=== PATIENT | male | born 1940 | race Caucasian/White ===

== ENCOUNTER 2024-04-19 18:39 | Emergency (ER) | payer MEDICARE, OTHER, SELFPAY ==
[2024-04-19] VITALS (12 sets, daily range): BP systolic 80–155; BP diastolic 47–84; PULSE 70–75; BMI 25.6
--- NOTE | 2024-04-19 18:44 | ED.GENMED ---
History of Present Illness
General
Chief Complaint: Change in Mental Status
Source: patient and family
Exam Limitations: none
Time Seen by Provider: 04/19/24 18:43
Nursing documentation reviewed up to this point in time: agreed with
History of Present Illness
History of Present Illness:
84-year-old male w h/o afib, pacemaker, stent 'all years ago,' at [place], D, hypotension on Midodrine he takes prn, presents via EMS who report pt was working around his pool, fell, couldn't get up and was calling out to neighbors who came and
called EMS. Pt is not anticoagulated, denies hitting his head.
Pt states he had just finished fixing something by his pool, got up to walk to the shed, stepped forward and 'my legs kept stepping and I couldn't stop myself, it was like I was going downhill and my legs wouldn't stop' and he fell forward. He felt
weak and couldn't get up so called out to his neighbor. States he was able to stand and walk when EMS came. He denies neck pain, denies back or chest pain, denies pain in extremities from the fall. Denies chest pain, headache, feeling dizzy or
lightheaded prior to fall.
Received 1 L NSS IV en route. Arrives alert, oriented.
His Pomeranian dog bit him yesterday and he presents with pain, swelling, puncture wounds to right hand
He injured his left lower ribs the other day when he fell, there is a mild linear abrasion at the lower rib area
Past History
Past History
ED Past Medical History: Arrthythmia (afib), Hypercholesterolemia and Other (hypotension on Midodrine)
ED Past Surgical History: Cardiac (stent, pacemaker)
Social History
Tobacco: Former smoker
Alcohol: Occasional
Personal:
Living: with family
Employment: Retired
Review of Systems
Review of Systems
Allergies reviewed?: Yes
All Other Systems: ROS reviewed and negative except as documented in HPI and ROS
Constitutional: Denies fever or fatigue
Respiratory: Denies trouble breathing
Cardiac: Denies chest pain, diaphoresis, palpitations or syncope
ABD/GI: Denies abdominal pain, nausea, vomiting or diarrhea
: Reports incontinence (sometimes incontinent, wears depends); Denies dysuria, frequency, difficulty voiding or urgency
Musculoskeletal: Reports other (denies pain in extremities); Denies edema, neck pain or back pain
Skin: Reports other (scraped left elbow , outer left knee from trying to get up on pavement)
Neurological: Denies dizzy, headache, weakness or numbness
Phy Exam
Physical Exam
Physical Exam:
GENERAL: No acute distress. A&Ox3.
CONSTITUTIONAL: Afebrile.
EYES: PERRL, conjunctivae normal
Neck: Supple
ENMT: moist mucus membranes, Pharynx nl
RESPIRATORY: Regular respirations, nonlabored, lungs clear.
CARDIOVASCULAR: Regular rate and rhythm, no murmurs, no rubs.
GI: Soft, nontender, normal BS
MUSCULOSKELETAL: No spinal bony tenderness. No bony tenderness, adequate ROM of all extremities. Moves with ease. Well perfused. No edema
SKIN: Warm, dry, pink, deep clean abrasion left elbow and left outer knee.
PSYCH: Normal mood and affect. Well kept, interactive and appropriate
NEUROLOGIC: Awake, alert and oriented. Speech clear. Strength equal throughout. CN 2-12 intact. Finger to nose intace. No focal neurological deficits
Course
Orders/Labs/Results
Orders:
Orders
04/19/24 19:03
Electrocardiogram (*1) Urgent
Reason for Study: Other
Other Reason for Exam: fall, lost balance
EKG- Treatment ONCE
04/19/24 19:08
Complete Blood Count/With Diff Urgent
Comprehensive Metabolic Panel Urgent
Troponin I Urgent
04/19/24 19:09
Hand, Right 3 View [CR Hand - Right Min 3 Views] Urgent
Comment:
Reason For Exam: dog bite, redness, swelling index finger/dorsum
04/19/24 19:10
Amoxicillin 875 mg/Clav 125 mg [Augmentin 875 mg/125 mg] 1 tablet PO NOW STA
04/19/24 20:14
Ribs, Left 3 View W/PA Chest CR [CR Ribs-left 3 Vw W/pa Chest] Urgent
Comment:
Reason For Exam: abrasion left later lower ribs after fall
04/19/24 20:45
Orthostatic VS- Treatment ONCE
04/19/24 21:44
0.9% Sodium Chloride 500 ml [Nss] 500 ml IV BOLUS
Abnormal Lab Results
04/19/24
19:08
RBC 4.12 L 10^6/uL
(4.70-6.10)
Hct 36.3 L %
(39.0-52.0)
MCH 31.6 H pg
(27.0-31.0)
MPV 10.7 H fL
(7.4-10.4)
Absolute Neuts (auto) 9.1 H 10^3/uL
(1.4-6.5)
Absolute Lymphs (auto) 0.8 L 10^3/uL
(1.2-3.4)
Absolute Monos (auto) 0.9 H 10^3/uL
(0.1-0.6)
Neutrophils % 84.1 H %
(42.2-75.2)
Lymphocytes % 7.0 L %
(20.5-51.1)
Chloride 109 H mmol/L
(98-107)
BUN 31 H mg/dl
(9-20)
Glucose 120 H mg/dl
(70-99)
Total Bilirubin 1.5 H mg/dl
(0.2-1.3)
04/19/24 19:08
04/19/24 19:08
Vital Signs
Initial and Last Documented VS:
Initial Vital Signs
Temp Pulse BP Pulse Ox
98.4 F 70 129/53 96
04/19/24 18:42 04/19/24 18:42 04/19/24 18:42 04/19/24 18:42
Last Documented Vital Signs
Temp Pulse Resp BP Pulse Ox
98.4 F 70 20 127/83 96
04/19/24 18:42 04/19/24 22:21 04/19/24 22:21 04/19/24 22:51 04/19/24 19:14
Machine Washer consulted with Physician
Machine Washer consulted with physician?: Yes
Name of Physician Consulted: Michel
MDM/Problems Addressed
Differential Diagnosis Includes:
mechanical fall, dehydration, heat exhaustion, orthostatic hypotension
MDM/Problems Addressed:
84-year-old male w h/o afib, pacemaker, stent 'all years ago,' at [place], D, hypotension on Midodrine he takes prn, presents via EMS who report pt was working around his pool, fell, couldn't get up and was calling out to neighbors who came and
called EMS. Pt is not anticoagulated, denies hitting his head.
Pt states he had just finished fixing something by his pool, got up to walk to the shed, stepped forward and 'my legs kept stepping and I couldn't stop myself, it was like I was going downhill and my legs wouldn't stop' and he fell forward. He felt
weak and couldn't get up so called out to his neighbor. States he was able to stand and walk when EMS came. He denies neck pain, denies back or chest pain, denies pain in extremities from the fall. Denies chest pain, headache, feeling dizzy or
lightheaded prior to fall.
Received 1 L NSS IV en route. Arrives alert, oriented.
His Pomeranian dog bit him yesterday and he presents with pain, swelling, puncture wounds to right hand
He injured his left lower ribs the other day when he fell, there is a mild linear abrasion at the lower rib area
8:00 p.m.
CBC: no clinically significant abnormality
CMP: No clinically significant abnormality
Troponin WNL
EKG: Atrial paced rhythm with prolonged AV conduction, no comparison EKG
Right hand x-ray: No acute bony abnormality or foreign body noted.
Left ribs: Neg fracture or other acute abnormality
9:30 p.m.
Orthostatics by this examiner
Laying supine BP 155/81 HR 76
Sitting BP 126/70 HR 76
Standing BP 98/57 HR 78
Pt had no lightheadedness/dizziness.
states 'we go through this every day' states BP fluctuates from very low to normal and sometimes high
This is nothing new
Will give another bolus of NSS 500 IV and discharg
Instructed to take Midodrine at least daily (he did take 2.5 mg TID at one time, then weaned himself to daily and now prn. He takes his blood pressure frequently during the day).
*EKG
EKG Intrepretation Date: 04/19/24
Interpretation: abnormal
Comparison EKG: no comparison EKG present
Heart Rate: 70
Rate: normal
Rhythm: other (Atrial paced rhythm)
[place]: normal axis
QRS Pattern: normal QRS
Ischemia: no ischemia
*Critical Care Note
Total Time (30-74mins, 75-104mins- exclusive of procedures): Not Applicable
ED Attending Note
-
Portions of this chart may have been created with voice recognition software.� Occasional wrong word or��sound alike� substitutions may have occurred due to the inherent limitations of voice recognition software.
Discharge Plan
Departure
Patient Disposition: Home (Routine Discharge)
Date of Disposition: 04/19/24
Time of Disposition: 20:57
Patient with high blood pressure during this ER visit?: No
Condition: Good
Discharge Problem:
Fall from slip, trip, or stumble, Abrasion of left elbow, Abrasion of left knee, Contusion of rib on left side, Dog bite of right hand, Mild dehydration
Instructions: Taking care of cuts, scrapes, and puncture wounds, Animal Bites ED, Fall Prevention for Older Adults
Prescriptions:
New
amoxicillin-pot clavulanate 875-125 mg tablet
1 tab PO BID Qty: 14 0RF
Referrals:
Kyle Weinberg MD [Family Provider] - Follow up in 5-7 days
Stand Alone Forms: Return to Work
Activity Restrictions/Additional Instructions:
As we discussed, get up from squatting or laying down and go from sit to stand SLOWLY so you don't get dizzy. Take your Midodrine as directed
The x-ray of your ribs shows no fractures
Your hand xray shows nothing worrisome
I sent a prescription to your pharmacy for Augmentin to take twice a day for 7 days for the hand infection.
Call your doctor's office tomorrow and make a follow up appointment for Tuesday or Tuesday next week for recheck.
Your lab work shows you were a little dehydrated and you received 1000 ml of IV fluids from the ambulance
Drink at least 6-8 eight ounce glasses of water/fluid daily to stay hydrated, especially if you are out in the sun
Interventions
Interventions:
*Risk Screen - Suicide Last Done: 04/19/24 18:57
*General Assessment Last Done: 04/19/24 18:57
*Neglect/Abuse Screening Last Done: 04/19/24 19:10
ED- Fall Risk Assessment Last Done: 04/19/24 19:11
*ED COVID-19 Vaccine History Last Done: 04/19/24 18:57
*Nursing Disposition Last Done: 04/19/24 22:54
ED- Pulmonary Assessment Last Done: 04/19/24 19:14
ED-Psychological Assessment Last Done: 04/19/24 22:54
ED- Neurological Assessment Last Done: 04/19/24 19:11
ED- Cardiac Assessment Last Done: 04/19/24 19:14
ED Swallowing Screen Last Done: 04/19/24 19:11
Discharge Date and Time
Discharge Date/Time: 04/19/24 22:55
Print Language: BELGIAN
[2024-04-19] MEDS: AUGMENTIN 875 MG/125 MG 1 TABLET PO (19:19)
[2024-04-19 19:22] LABS: % Basophils 0.1 % (0-2); % Eosinophils 0.3 % (0-6); % Immature Granulocytes 0.4 % (0-0.5); % Monocytes 8.1 % (1.7-9.3); % Neutrophils 84.1 % (42.2-75.2); Absolute Lymphocytes 0.8 10^3/uL (1.2-3.4); Absolute Monocytes 0.9 10^3/uL (0.1-0.6); Absolute Neutrophils 9.1 10^3/uL (1.4-6.5); Hematocrit 36.3 % (39.0-52.0); Mean Corp Hgb Conc. 35.8 g/dL (33.0-37.0); Mean Corpuscular Hgb 31.6 pg (27.0-31.0); Mean Corpuscular Volume 88.1 fL (80.0-94.0); Mean Platelet Volume 10.7 fL (7.4-10.4); Nucleated Red Blood Cells % 0 % (-); Platelet Count 135 10^3/uL (130-400); Red Blood Cell Count 4.12 10^6/uL (4.70-6.10); Red Cell Dist. Width 13.6 % (11.5-14.5); White Blood Cell Count 10.8 10^3/uL (4.8-10.8)
[2024-04-19 19:43] LABS: Troponin I < 0.012 ng/ml
[2024-04-19 19:44] LABS: ALT (SGPT) 18 U/L (0-50); AST (SGOT) 29 U/L (17-59); Albumin 3.7 g/dl (3.5-5.0); Alkaline Phosphatase 85 U/L (38-126); Blood Urea Nitrogen 31 mg/dl (9-20); Calcium 8.9 mg/dl (8.4-10.2); Carbon Dioxide 25 mmol/L (22-30); Chloride 109 mmol/L (98-107); Estimated Creatinine Clearance 78 ml/min; Glucose 120 mg/dl (70-99); Potassium 3.8 mmol/L (3.5-5.1); Sodium 139 mmol/L (135-145); Total Bilirubin 1.5 mg/dl (0.2-1.3); Total Protein 6.3 g/dl (6.3-8.2); eGFR > 60.00
[2024-04-19] MEDS: NSS 500 IV (21:46)
== END 2024-04-19 22:55 | disposition home or self-care (01) ==
LOC: EMR 18:39
PROVIDERS: Registered Nurse; EMERGENCY PHYSICIAN Emergency Medicine; FAMILY PHYSICIAN Internal Medicine
DX: S50.312A Abrasion of left elbow, initial encounter (principal); S80.212A Abrasion, left knee, initial encounter; S20.212A Contusion of left front wall of thorax, initial encounter; E86.0 Dehydration; W01.0XXA Fall on same level from slipping, tripping and stumbling without subsequent striking against object, initial encounter; S61.451A Open bite of right hand, initial encounter; W54.0XXA Bitten by dog, initial encounter; I48.91 Unspecified atrial fibrillation; E78.00 Pure hypercholesterolemia, unspecified; Z87.891 Personal history of nicotine dependence; Z95.0 Presence of cardiac pacemaker; Z95.5 Presence of coronary angioplasty implant and graft
CPT/HCPCS: 99283; 96360; 71101; 73130; 80053; 84484; 85025; 93005